=== PATIENT | male | born 1935 | race Caucasian/White ===

== ENCOUNTER 2017-04-06 14:10 | Inpatient (IN) | payer OTHER ==
[~2017-04-06] VITALS: Ht 177.8 cm; Wt 63.7 kg
[2017-04-06 15:15] LABS: HEMATOCRIT 35.3 % (39.2-51.8); HEMOGLOBIN 11.5 g/dL (13.7-18.0)
[2017-04-06 15:25] LABS: ASPARTATE AMINO TRANSFERASE 22 U/L (15-37); BLOOD UREA NITROGEN 23 mg/dL (7-18)
[2017-04-06] MEDS ORDERED: PANTOPRAZOLE 80 MG in SODIUM CHLORIDE 0.9% 50 ML IVPB ONE (18:03)
[2017-04-06] MEDS ORDERED: PANTOPRAZOLE 80 MG in SODIUM CHLORIDE 0.9% 100 ML IV SCH (18:03)
[2017-04-06] MEDS ORDERED: WARF5TAB PO (18:06)
[2017-04-06] MEDS ORDERED: PHYTONADIONE 10 MG/ML, 1ML ONE (18:11)
[2017-04-06] MEDS ORDERED: SODIUM CHLORIDE 0.9% 1,000ML IVBOLUS ONE (18:30)
[2017-04-06] MEDS ORDERED: PHYTONADIONE 10 MG/ML, 1ML IM ONE (18:30)
[2017-04-06] MEDS ORDERED: PHYTONADIONE 10 MG/ML, 1ML SQ ONE (18:30)
[2017-04-06] MEDS ORDERED: SODIUM CHLORIDE FLUSH 10ML SYR IVF ONE (18:30)
[2017-04-06] MEDS ORDERED: ENALAPRILAT 1.25 MG/ML, 2ML IVPush PRN (19:00)
[2017-04-06] MEDS ORDERED: ONDANSETRON 2MG/ML, 2ML IVPush PRN (19:00)
[2017-04-06] MEDS ORDERED: ACETAMINOPHEN 325 MG TABLET PO PRN (19:00)
[2017-04-06] MEDS: PANTOPRAZOLE 80 MG in SODIUM CHLORIDE 0.9% 100 ML IV SCH (19:10)
[2017-04-06 20:54] VITALS: BP 136/71
[2017-04-06 21:30] LABS: HEMATOCRIT 31.6 % (39.2-51.8); HEMOGLOBIN 10.5 g/dL (13.7-18.0)
[2017-04-06] MEDS ORDERED: OMNIPAQUE 350 MG/ML, 100ML BOTTLE ONE (21:58)
[2017-04-06] MEDS: SODIUM CHLORIDE 0.9% 1,000 ML IV SCH (22:08)
[2017-04-07] VITALS (9 sets, daily range): BP systolic 85–115; BP diastolic 39–70
[2017-04-07] MEDS: PANTOPRAZOLE 80 MG in SODIUM CHLORIDE 0.9% 100 ML IV SCH ×3 (05:04→23:57)
[2017-04-07] MEDS: SODIUM CHLORIDE 0.9% 1,000 ML IV SCH ×3 (05:04→23:42)
[2017-04-07 05:19] LABS: HEMOGLOBIN 9.9 g/dL (13.7-18.0); WHITE BLOOD COUNT 5.9 x10^3/uL (3.4-10)
[2017-04-07 05:32] LABS: BLOOD UREA NITROGEN 19 mg/dL (7-18)
[2017-04-07] MEDS ORDERED: GOLYTELY 4,000ML ORAL.SOL PO ONE (17:00)
[2017-04-07 18:29] LABS: HEMATOCRIT 33.8 % (39.2-51.8)
[2017-04-08] VITALS (9 sets, daily range): BP systolic 104–124; BP diastolic 52–67
[2017-04-08 01:52] LABS: HEMATOCRIT 28.9 % (39.2-51.8); HEMOGLOBIN 9.3 g/dL (13.7-18.0)
[2017-04-08 06:47] LABS: HEMATOCRIT 29.1 % (39.2-51.8); HEMOGLOBIN 9.7 g/dL (13.7-18.0); WHITE BLOOD COUNT 5.4 x10^3/uL (3.4-10)
[2017-04-08 06:59] LABS: ASPARTATE AMINO TRANSFERASE 24 U/L (15-37); BLOOD UREA NITROGEN 10 mg/dL (7-18)
[2017-04-08] MEDS: SODIUM CHLORIDE 0.9% 1,000 ML IV SCH ×2 (08:18→20:00)
[2017-04-08 10:29] LABS: HEMATOCRIT 30.2 % (39.2-51.8)
[2017-04-08] MEDS ORDERED: FENTANYL PF 100 MCG/2ML ONE (11:51)
[2017-04-08] MEDS ORDERED: MIDAZOLAM 1 MG/ML, 5ML ONE (11:51)
[2017-04-08] MEDS: PANTOPRAZOLE 80 MG in SODIUM CHLORIDE 0.9% 100 ML IV SCH (15:49)
[2017-04-08 17:53] LABS: HEMATOCRIT 32.5 % (39.2-51.8); HEMOGLOBIN 10.6 g/dL (13.7-18.0)
[2017-04-09 00:57] VITALS: BP 124/60
[2017-04-09 03:34] LABS: BLOOD UREA NITROGEN 9 mg/dL (7-18)
[2017-04-09 03:38] LABS: HEMATOCRIT 32.2 % (39.2-51.8); HEMOGLOBIN 10.6 g/dL (13.7-18.0); WHITE BLOOD COUNT 7.1 x10^3/uL (3.4-10)
[2017-04-09] MEDS: PANTOPRAZOLE 80 MG in SODIUM CHLORIDE 0.9% 100 ML IV SCH (04:54)
[2017-04-09] MEDS: SODIUM CHLORIDE 0.9% 1,000 ML IV SCH (04:55)
[2017-04-09 06:26] VITALS: BP 149/62
[2017-04-09 09:58] LABS: HEMOGLOBIN 10.7 g/dL (13.7-18.0)
[2017-04-09] MEDS: POTASSIUM CHLORIDE 20 MEQ TAB.ER.PRT PO SCH ×2 (11:41→19:26)
[2017-04-09 12:30] VITALS: BP 120/64
[2017-04-09] MEDS: D5%-0.45NACL+KCL 20MEQ 1,000 ML IV SCH (13:29)
[2017-04-09] MEDS ORDERED: FENTANYL PF 100 MCG/2ML ONE (16:13)
[2017-04-09] MEDS ORDERED: VISIPAQUE 270 MG/ML, 50ML BOTTLE ONE (17:00)
[2017-04-09 18:41] LABS: HEMATOCRIT 31.9 % (39.2-51.8); HEMOGLOBIN 10.5 g/dL (13.7-18.0)
[2017-04-09 19:55] VITALS: BP 135/70
[2017-04-10] VITALS (9 sets, daily range): BP systolic 121–139; BP diastolic 60–75
[2017-04-10 01:13] LABS: HEMATOCRIT 33.2 % (39.2-51.8); HEMOGLOBIN 10.9 g/dL (13.7-18.0)
[2017-04-10] MEDS: D5%-0.45NACL+KCL 20MEQ 1,000 ML IV SCH ×2 (02:02→18:57)
[2017-04-10 04:33] LABS: HEMATOCRIT 31.8 % (39.2-51.8); HEMOGLOBIN 10.5 g/dL (13.7-18.0); WHITE BLOOD COUNT 6.9 x10^3/uL (3.4-10)
[2017-04-10 04:44] LABS: ASPARTATE AMINO TRANSFERASE 21 U/L (15-37); BLOOD UREA NITROGEN 5 mg/dL (7-18)
[2017-04-10 09:39] LABS: HEMATOCRIT 33.7 % (39.2-51.8); HEMOGLOBIN 11.1 g/dL (13.7-18.0)
[2017-04-10] MEDS ORDERED: EPINEPHRINE 1 MG/ML, 1ML ONE (14:00)
[2017-04-10] MEDS ORDERED: BUPIVACAINE/PF 0.5% ONE (14:00)
[2017-04-10] MEDS ORDERED: CEFOTETAN 1 GM ONE (14:54)
[2017-04-10] MEDS ORDERED: ONDANSETRON 2MG/ML, 2ML ONE (14:54)
[2017-04-10] MEDS ORDERED: ROCURONIUM 10 MG/ML ONE (14:54)
[2017-04-10] MEDS ORDERED: NEOSTIGMINE 1 MG/ML, 10ML ONE (14:54)
[2017-04-10] MEDS ORDERED: GLYCOPYRROLATE 0.2MG/1ML ONE (14:54)
[2017-04-10] MEDS ORDERED: PROPOFOL 10 MG/ML, 20ML ONE (14:54)
[2017-04-10] MEDS ORDERED: FENTANYL PF 100 MCG/2ML ONE (14:57)
[2017-04-10] MEDS ORDERED: LABETALOL 5MG/ML, 20ML IV PRN (15:00)
[2017-04-10] MEDS ORDERED: ALBUTEROL SULFATE 2.5 MG/3 ML NPPB PRN (15:00)
[2017-04-10] MEDS ORDERED: ACETAMINOPHEN 325 MG TABLET PO PRN (15:00)
[2017-04-10] MEDS ORDERED: hydrALAzine 20 MG/ML, 1ML IV PRN (15:00)
[2017-04-10] MEDS ORDERED: METOPROLOL 1 MG/ML, 5ML IV PRN (15:00)
[2017-04-10] MEDS ORDERED: EPHEDRINE 50 MG/ML, 1ML IVPush PRN (15:00)
[2017-04-10] MEDS ORDERED: HYDROmorphone 1 MG/ML, 1ML IV PRN (15:00)
[2017-04-10] MEDS ORDERED: OXYcodone 5 MG/5 ML ORAL.SOL UDC PO PRN (15:00)
[2017-04-10] MEDS ORDERED: FENTANYL PF 100 MCG/2ML IV PRN (15:00)
[2017-04-10] MEDS ORDERED: ONDANSETRON 2MG/ML, 2ML IVPush PRN (15:00)
[2017-04-10] MEDS ORDERED: BUPIVACAINE/PF-EPI 0.5% 1:200K INFIL ONE (15:18)
[2017-04-10] MEDS ORDERED: OXYcodone 5 MG/5 ML ORAL.SOL UDC ONE (16:16)
[2017-04-10] MEDS ORDERED: hydrALAzine 20 MG/ML, 1ML ONE (16:16)
[2017-04-10 17:22] LABS: HEMATOCRIT 37.3 % (39.2-51.8); HEMOGLOBIN 12.1 g/dL (13.7-18.0)
[2017-04-11 01:18] LABS: HEMATOCRIT 33.9 % (39.2-51.8); HEMOGLOBIN 11.2 g/dL (13.7-18.0)
[2017-04-11 01:54] VITALS: BP 119/64
[2017-04-11 06:26] VITALS: BP 84/48
[2017-04-11 06:40] VITALS: BP 84/58
[2017-04-11 06:48] VITALS: BP 90/58
[2017-04-11] MEDS: D5%-0.45NACL+KCL 20MEQ 1,000 ML IV SCH ×2 (07:49→20:18)
[2017-04-11 08:55] LABS: BLOOD UREA NITROGEN 8 mg/dL (7-18)
[2017-04-11 12:04] VITALS: BP 95/53
[2017-04-11 20:41] VITALS: BP 130/68
[2017-04-12 01:38] VITALS: BP 123/65
[2017-04-12 04:28] LABS: HEMATOCRIT 32.1 % (39.2-51.8); HEMOGLOBIN 10.6 g/dL (13.7-18.0); WHITE BLOOD COUNT 7.4 x10^3/uL (3.4-10)
[2017-04-12 04:35] LABS: BLOOD UREA NITROGEN 10 mg/dL (7-18)
[2017-04-12] MEDS: D5%-0.45NACL+KCL 20MEQ 1,000 ML IV SCH (05:49)
[2017-04-12 07:18] VITALS: BP 128/65
[2017-04-12] MEDS ORDERED: POLYETHYLENE GLYCOL 17 GM PACKET PO SCH (09:00)
[2017-04-12 14:26] VITALS: BP 109/59
[2017-04-12] MEDS ORDERED: ENALAPRILAT 1.25 MG/ML, 2ML IVPush PRN (16:00)
[2017-04-12] MEDS ORDERED: ONDANSETRON 2MG/ML, 2ML IVPush PRN (16:00)
[2017-04-12] MEDS ORDERED: ACETAMINOPHEN 325 MG TABLET PO PRN (16:00)
[2017-04-12 20:00] VITALS: BP 119/64
[2017-04-13 02:58] VITALS: BP 110/76
[2017-04-13 06:35] VITALS: BP 151/74
[2017-04-13] MEDS ORDERED: POLYETHYLENE GLYCOL 17 GM PACKET PO SCH (09:00)
[2017-04-13 13:15] VITALS: BP 95/55
== END 2017-04-13 16:30 | disposition hospice, home (50) | DRG 329 ==
LOC: ED 18:04 → EDIP 18:05 → ED 18:10 → 3NW 20:09
PROVIDERS: ADMIT Internal Medicine; ATTEND Internal Medicine
PROC: 0DBP8ZX Excision of Rectum, Via Natural or Artificial Opening Endoscopic, Diagnostic (ICD-10-PCS; 2017-04-06)
PROC: BD4CZZZ Ultrasonography of Rectum (ICD-10-PCS; 2017-04-06)
PROC: 0D1N4Z4 Bypass Sigmoid Colon to Cutaneous, Percutaneous Endoscopic Approach (ICD-10-PCS; 2017-04-06)
PROC: 0DJ08ZZ Inspection of Upper Intestinal Tract, Via Natural or Artificial Opening Endoscopic (ICD-10-PCS; principal; 2017-04-08 12:00)
PROC: B5191ZA Fluoroscopy of Inferior Vena Cava using Low Osmolar Contrast, Guidance (ICD-10-PCS; 2017-04-09)
PROC: 30233L1 Transfusion of Nonautologous Fresh Plasma into Peripheral Vein, Percutaneous Approach (ICD-10-PCS; 2017-04-09)
PROC: 30233K1 Transfusion of Nonautologous Frozen Plasma into Peripheral Vein, Percutaneous Approach (ICD-10-PCS; 2017-04-09)
DX: C20 Malignant neoplasm of rectum (principal); E43 Unspecified severe protein-calorie malnutrition; C78.7 Secondary malignant neoplasm of liver and intrahepatic bile duct; D68.9 Coagulation defect, unspecified; D68.69 Other thrombophilia; R64 Cachexia; I82.529 Chronic embolism and thrombosis of unspecified iliac vein; G30.9 Alzheimer's disease, unspecified; F02.80 Dementia in other diseases classified elsewhere, unspecified severity, without behavioral disturbance, psychotic disturbance, mood disturbance, and anxiety; K92.1 Melena; D62 Acute posthemorrhagic anemia; Z68.20 Body mass index [BMI] 20.0-20.9, adult; I71.4 Abdominal aortic aneurysm, without rupture; K80.20 Calculus of gallbladder without cholecystitis without obstruction; R32 Unspecified urinary incontinence; Z66 Do not resuscitate; Z79.01 Long term (current) use of anticoagulants; Z82.0 Family history of epilepsy and other diseases of the nervous system; Z87.891 Personal history of nicotine dependence
CPT/HCPCS: 36415; 37191; 74177; 76937; 80048; 80053; 81001; 83735; 84100; 84153; 85014; 85018; 85025; 85610; 85730; 86850; 86900; 88305; 93970; 96365; 96372; 99152; 99153; C1894; J0171; J2250; J2405; J2704; J2710; J3010; J3430; J3490; Q9966; Q9967; C1769; C9113; J0360; J3480; J7030; P9017; S0074

== ENCOUNTER 2018-06-06 08:48 | Emergency (ER) | payer OTHER ==
[~2018-06-06] VITALS: Ht 177.8 cm; Wt 59.9 kg
[~2018-06-06 08:48] MED LIST: WARF5TAB PO
[2018-06-06 10:43] VITALS: BP 125/69
== END 2018-06-06 10:57 | disposition home or self-care (01) ==
LOC: ED 10:45
DX: K94.09 Other complications of colostomy (principal); Z85.048 Personal history of other malignant neoplasm of rectum, rectosigmoid junction, and anus
CPT/HCPCS: 99284